=== PATIENT | male | born 1980 | race Caucasian/White ===

== ENCOUNTER 2021-04-04 04:25 | Emergency (ER) | payer SELFPAY ==
[2021-04-04 05:03] VITALS: BP 163/94; PULSE 88; TEMP 98.3; BMI 27.1
[2021-04-04] MEDS ORDERED: LIDOCAINE 5% TOPICAL PATCH TP ONE (05:19)
[2021-04-04] MEDS ORDERED: LIDOCAINE 5% TOPICAL PATCH ONE (05:36)
[2021-04-04] MEDS ORDERED: CYCLOBENZAPRINE HCL 5 MG TABLET PO ONE (05:38)
[2021-04-04] MEDS ORDERED: CYCLOBENZAPRINE HCL 5 MG TABLET PO SCH (10:00)
[2021-04-04] MEDS ORDERED: LIDOCAINE PATCH REMOVAL MC ONE (18:00)
== END 2021-04-04 07:12 | disposition home or self-care (01) ==
LOC: JER 04:25
DX: S22.39XA Fracture of one rib, unspecified side, initial encounter for closed fracture (principal)
CPT/HCPCS: 71101-TC-LT-FY; 93005; 93010; 99284-25